=== PATIENT | male | born 2000 | race Caucasian/White ===

== ENCOUNTER 2022-09-14 10:25 | Emergency (ER) | payer BC ==
--- OUTSIDE RECORDS SUMMARY | 2022-09-14 10:28 | XMS REPORT | Continuity of Care Document ---
:[address] [facility] t Address [address] [place] [address]. 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 rmann striction striction Active Problem 09/03/2021 eCW: Janeth Sullivan MD, PA Obesity Obesity Problem Active 2021-09-03 Me moria Active 04:10:30 l Problem Manuel 09/03/2021 eCW: Janeth Sullivan MD, PA Allergic Allergic Problem Active 2021-09-03 Memoria rhinitis rhinitis 04:10:30 l Active Manuel Problem 09/03/2021 eCW: Janeth Sullivan MD, PA Hair loss Hair loss Diagnosis Active 2020-01-09 Memoria Active 04:10:51 l Diagnosis Manuel 01/09/2020 eCW: Janeth Sullivan MD, PA Exposure Exposure Diagnosis Active 2019-05-09 Memoria to to 05:10:45 l hepatitis hepatitis Herm azam B B Active Diagnosis 05/09/2019 eCW: Janeth Sullivan MD, PA Encounter Encounter Diagnosis Active 2021-04-05 Memoria for for 05:37:34 l immunizati immunizati He rmann on on Active Diagnosis 04/05/2021 eCW: Janeth Sullivan MD, PA Screen for Screen Diagnosis Active 2021-09-03 Memoria STD for STD 04:10:30 l (sexually (sexually Herm azam transmitte transmitte d disease) d disease) Active Diagnosis 09/03/2021 eCW: Janeth Sullivan MD, PA Adult Adult Diagnosis Active 2021-09-03 [facility] 04:10:30 l medical medical Manuel exam exam Active Diagnosis 09/03/2021 eCW: Janeth Sullivan MD, PA Sinusitis Diagnosis Active 2021-08-18 Memoria Sinusitis 04:13:12 l Active Manuel Diagnosis 08/18/2021 eCW: Janeth Sullivan MD, PA Immunity Immunity Diagnosis Active 2021-04-05 Memoria status status 05:21:58 l testing testing Manuel Active Diagnosis 04/05/2021 eCW: Janeth Sullivan MD, PA Screening Screening Diagnosis [facility]:21[facility]58 l tuberculos tuberculos He rmann is is Active Diagnosis 04/05/2021 eCW: Janeth Sullivan MD, PA Need for Need for Diagnosis Active 2021-04-05 Memoria hepatitis hepatitis 05:21:58 l C C Manuel screening screening test test Active Diagnosis 04/05/2021 eCW: Janeth Sullivan MD, PA Allergies, Adverse Reactions, Alerts Allergy Allergy Status Severity Reaction(s) Onset Inactive Treating Comm ents Source Name Type Date Date Clinician N.K.D.A. N.K.D.A. Active Info Not Luis massiel Available 5-11 l 00:00: Manuel 00 Social History Social Habit Start Date Stop Date Quantity Comments Source [facility] Tobacco use and 2021-05-04 2021-05-04 Smokeless Religion exposure 00:00:00 00:00:00 tobacco non-user Hospital Alcohol intake 2021-05-04 2021-05-04 Ex-drinker Religion 00:00:00 00:00:00 (finding) Hospital History of Social 2021-05-04 2021-05-[address] function 00:00:00 00:00:00 Hospital Alcohol Comment 2021-05-04 2021-05-04 social Religion 00:00:00 00:00:00 Hospital Sex Assigned At [birth year] Religion 00:00:00 00:00:00 Hospital Smoking Status Start Date Stop Date Source Never smoked tobacco [facility] Medications Ordered Filled Start Stop Current Ordering Indication Dosage Frequency Signature Comments Components Source Medication Medication Date Date Medication? Clinician (SIG) Name Name Amoxicillin Yes KATIE 1 tablet Memoria 4-22 MARISCAL l 00:00: ProAir HFA Yes KATIE 1 puff as Memoria 7-21 MARISCAL needed l 00:00: Manuel 00 ProAir HFA Yes KATIE 1 puff as Memoria 7-21 MARISCAL needed l 00:00: Immunizations Ordered Immunization Filled Immunization Date Status Commen ts Source Name Name VARICELLA 2020-10-03 Completed [facility] 00:00:00 Manuel ppd 2020-10-03 Completed [facility] 00:00:00 Manuel [place] Quadrivalent 2020-09-26 Completed Luis rial 00:00:00 [place] ppd 2020-09-26 Completed [facility] 00:00:00 [place] Vital Signs Vital Name Observation Time Observation Value Comments Source Diastolic (mm Hg) 2021-09-02 13:15:00 Mem orial Manuel Systolic (mm Hg) 2021-09-02 13:15:00 Lius rial Manuel Temperature Oral (F) 2021-09-02 13:15:00 97.9 F [facility] Manuel Weight 2021-09-02 13:15:00 [facility] [place] Height 2021-09-02 13:15:00 [facility] [place] Weight 2021-08-14 21:00:00 [facility] Manuel Height 2021-08-14 21:00:00 [facility] [place] Diastolic (mm Hg) 2020-09-26 14:00:00 Mem orial [place] Systolic (mm Hg) 2020-09-26 14:00:00 Luis rial [place] Temperature Oral (F) 2020-09-26 14:00:00 97.9 F [facility] [place] Weight 2020-09-26 14:00:00 [facility] Manuel Height 2020-09-26 14:00:00 [facility] [place] Weight 2020-01-07 15:30:00 [facility] [place] Height 2020-01-07 15:30:00 [facility] Manuel Weight 2019-11-13 16:30:00 [facility] [place] Height 2019-11-13 16:30:00 [facility] Manuel Diastolic (mm Hg) 2019-05-08 16:15:00 Mem orial [place] Systolic (mm Hg) 2019-05-08 16:15:00 Luis rial Manuel Temperature Oral (F) 2019-05-08 16:15:00 98.3 F [facility] [place] Weight 2019-05-08 16:15:00 [facility] Manuel Height 2019-05-08 16:15:00 [facility] [place] Procedures This patient has no known procedures. Plan of Care Planned Activity Planned Date Details Comments Source Future Scheduled 2022-09-14 COVID-19 VACCINE [facility] Test 10:28:19 (#1) [code = COVID-19 VACCINE (#1)] Future Scheduled 2022-09-14 Hepatitis C [facility] Test 10:28:19 screening (procedure) [code = 752221053] Future Scheduled 2022-09-14 INFLUENZA VACCINE [facility] Test 10:28:19 [code = INFLUENZA VACCINE] Encounters Start End Encounter Admission Attending Care Care Encounter Source Date/Time Date/Time Type Type Clinicians Facility Department ID 2022-09-14 Outpatient [id number] Memoria 10:28:19 [id number] Manuel [id number] 2022-02-03 Inpatient [facility] [id number] [facility] 21:38:00 00 [facility] 2021-09-02 2021-09-02 Outpatient [facility] [id number] eClinic 08:15:00 08:15:00 [facility] 2021-08-31 2021-08-31 Outpatient [facility] [id number] eClinic 14:25:00 14:25:00 [facility] 2021-08-14 2021-08-14 [facility] [place] [id number] eClinic 16:00:00 16:00:00 [facility] 2021-05-04 2021-05-04 Emergency [place], [place] [id number] [place] 00:00:00 00:00:00 [facility] 2020-10-06 2020-10-06 [facility] [place] [id number] eClinic 11:43:00 11:43:00 [facility] 2020-10-06 2020-10-06 Outpatient Pedro Pedro [place] [id number] eClinic 11:30:00 11:30:00 [facility] 2020-10-03 2020-10-03 Outpatient Pedro Pedro [place] [id number] eClinic 14:30:00 14:30:00 [facility] 2020-09-26 2020-09-26 Outpatient Pedro Pedro [place] [id number] eClinic 08:00:00 08:00:00 [facility] 2020-09-24 2020-09-24 Outpatient Pedro Pedro [place] [id number] eClinic 14:22:00 14:22:00 [facility] 2020-02-05 2020-02-05 Outpatient Pedro Pedro [place] [id number] eClinic 09:44:00 09:44:00 [facility] 2020-01-29 2020-01-29 Outpatient Pedro Pedro [place] [id number] eClinic 11:06:00 11:06:00 [facility] 2020-01-08 2020-01-08 Outpatient [facility] [place] [id number] eClinic 10:30:00 10:30:00 [facility] 2020-01-07 2020-01-07 Outpatient [facility] [place] [id number] eClinic 10:47:00 10:47:00 [facility] 2020-01-07 2020-01-07 Outpatient [facility] [id number] eClinic 10:30:00 10:30:00 [facility] 2019-11-13 2019-11-13 Outpatient [facility] [id number] eClinic 11:30:00 11:30:00 [facility] 2019-05-08 2019-05-08 Outpatient [facility] [id number] eClinic 10:15:00 10:15:00 [facility] Results This patient has no known results.
[2022-09-14] MEDS ORDERED: TDAP (DIPHTH,PERTUSS(ACELL),TET VAC) 0.5 ML VIAL IMVAC ONE (11:29)
[2022-09-14] MEDS ORDERED: DERMABOND SKIN ADHESIVE TOP ONE (11:31)
--- NOTE | 2022-09-14 11:54 | ER ---
Nurse's Notes [facility] Name: Vee Vidal II Age: 22 yrs Sex: Male : 2000 Arrival Date: 09/14/2022 Time: 10:25 Bed 12 Private MD: Diagnosis: Laceration without foreign body of left middle finger without damage to nail Presentation: 09/14 10:41 Chief complaint: Patient states: was working on his truck, cut his left middle finger. iw Coronavirus screen: At this time, the client does not indicate any symptoms associated with coronavirus-19. Ebola Screen: Patient negative for fever greater than or equal to 101.5 degrees Fahrenheit, and additional compatible Ebola Virus Disease symptoms Patient denies exposure to infectious person. Patient denies travel to an Ebola-affected area in the 21 days before illness onset. No symptoms or risks identified at this time. Initial Sepsis Screen: Does the patient meet any 2 criteria? No. Patient's initial sepsis screen is negative. Does the patient have a suspected source of infection? No. Patient's initial sepsis screen is negative. Risk Assessment: Do you want to hurt yourself or someone else? Patient reports no desire to harm self or others. Onset of symptoms was September 14, 2022. 10:41 Method Of Arrival: Ambulatory iw 10:41 Acuity: JOCELYN 4 iw Triage Assessment: 11:00 General: Appears in no apparent distress. uncomfortable, Behavior is calm, cooperative, eh3 appropriate for age. Pain: Complains of pain in left middle finger. Neuro: Level of Consciousness is awake, alert, obeys commands, Oriented to person, place, time, situation. Cardiovascular: Capillary refill < 3 seconds Patient's skin is warm and dry. Respiratory: Airway is patent Respiratory effort is even, unlabored, Respiratory pattern is regular, symmetrical. GI: Abdomen is round non-distended. : No signs and/or symptoms were reported regarding the genitourinary system. Derm: Skin is pink, warm \T\ dry. Musculoskeletal: Circulation, motion, and sensation intact. Injury Description: Laceration sustained to dorsal aspect of middle phalanx of left middle finger is clean, 0.5 to 2.5 cm long, not bleeding. Historical: - Allergies: 10:43 No Known Allergies; iw - Home Meds: 10:43 None [Active]; iw - PMHx: 10:43 None; iw - Immunization history:: Last tetanus immunization: unknown. - Social history:: Smoking status: . Screenin:00 [facility] ED Fall Risk Assessment (Adult) Score/Fall Risk Level 0 - 2 = Low Risk. Abuse eh3 screen: Denies threats or abuse. Denies injuries from another. Nutritional screening: No deficits noted. Tuberculosis screening: No symptoms or risk factors identified. Assessment: 11:00 Reassessment: No changes from previously documented assessment. See triage assessment. eh3 Vital Signs: 10:43 BP 127 / 80; Pulse 80; Resp 16; Temp 98.4; Pulse Ox 99% on R/A; Weight 113.4 kg; Height iw 6 ft. 0 in. ; Pain 2/10; 10:43 Body Mass Index 33.91 (113.40 kg, 182.88 cm) iw 10:43 Pain Scale: Adult ED Course: 10:28 Patient arrived in ED. rg4 10:29 Solange Huntley FNP is [facility]. jh7 10:29 Verónica Mcdermott MD is Attending Physician. 7 10:41 Triage completed. iw 10:43 Arm band placed on. iw 11:00 Patient has correct armband on for positive identification. Bed in low position. Call eh3 light in reach. 11:00 Wound care: to laceration located on dorsal aspect of middle phalanx of left middle eh3 finger was irrigated with normal saline, Patient tolerated well. 11:04 XRAY Hand LEFT 3 View In Process Unspecified. EDMS 11:18 Jodie Lima, RN is Primary Nurse. eh3 12:02 No provider procedures requiring assistance completed. Patient did not have IV access eh3 during this emergency room visit. Administered Medications: 11:25 Drug: Tetanus-Diphtheria Toxoid IM Adult 0.5 ml {Industrial Custodian: [employer] ([employer]). 3 Exp: 02/09/2023. Lot #: [id number]. } Route: IM; Site: right deltoid; 11:25 Follow up: Response: (VIS) Vaccine information sheet provided today. Questions and/or eh3 concerns addressed. VIS edition date: Nov 28, 2020. 12:02 Follow up: Response: No adverse reaction eh3 Medication: 11:25 Vaccine Information Statement (VIS) provided today. Questions and/or concerns 3 addressed. VIS edition date: November 28, 2020. Outcome: 11:54 Discharge ordered by . [email or web address] 12:02 Discharged to home ambulatory. 3 12:02 Condition: stable 12:02 Discharge instructions given to patient, Instructed on discharge instructions, follow up and referral plans. wound care, Demonstrated understanding of instructions, follow-up care, wound care. 12:03 Patient left the ED. 3 Signatures: Dispatcher [employer] EDCarol Moura, DARLYN SANTIZO iw Swetha Javier 4 Jodie Lima RN RN 3 Solange Huntley, WATER FILTERER HELPER WATER FILTERER HELPER 7 Corrections: (The following items were deleted from the chart) 10:44 10:43 Pulse 80bpm; Resp 16bpm; Pulse Ox 99% RA; Temp 98.4F; iw kaley
--- NOTE | 2022-09-14 11:54 | EDPHYS ---
Physician Documentation [facility] Name: Vee Vidal II Age: 22 yrs Sex: Male : 2000 Arrival Date: 09/14/2022 Time: 10:25 Bed 12 Private MD: ED Physician Verónica Mcdermott HPI: 09/14 10:40 This 22 yrs old Male presents to ER via Ambulatory with complaints of Finger Laceration.jh7 10:40 Onset: The symptoms/episode began/occurred acutely. 22-year-old male reports that he jh7 cut his left third digit on his cars engine 30 minutes prior to arrival. Complains of laceration over the PIP. Full range of motion no bleeding noted at this time.. Historical: - Allergies: 10:43 No Known Allergies; iw - Home Meds: 10:43 None [Active]; iw - PMHx: 10:43 None; iw - Immunization history:: Last tetanus immunization: unknown. - Social history:: Smoking status: . ROS: 10:40 Constitutional: Negative for fever, chills, and weight loss, Eyes: Negative for injury, jh7 pain, redness, and discharge, Neck: Negative for injury, pain, and swelling, Cardiovascular: Negative for chest pain, palpitations, and edema, Respiratory: Negative for shortness of breath, cough, wheezing, and pleuritic chest pain, Neuro: Negative for headache, weakness, numbness, tingling, and seizure. 10:40 MS/extremity: Positive for laceration, of the left hand. 10:40 Skin: Positive for laceration(s), of the Left 3rd digit over PIP. 10:40 All other systems are negative. Exam: 10:40 Constitutional: This is a well developed, well nourished patient who is awake, alert, jh7 and in no acute distress. Head/Face: Normocephalic, atraumatic. Eyes: Pupils equal round and reactive to light, extra-ocular motions intact. Lids and lashes normal. Conjunctiva and sclera are non-icteric and not injected. Cornea within normal limits. Periorbital areas with no swelling, redness, or edema. Neck: Trachea midline, no thyromegaly or masses palpated, and no cervical lymphadenopathy. Supple, full range of motion without nuchal rigidity, or vertebral point tenderness. No Meningismus. Cardiovascular: Regular rate and rhythm with a normal S1 and S2. No gallops, murmurs, or rubs. Normal PMI, no JVD. No pulse deficits. Respiratory: Lungs have equal breath sounds bilaterally, clear to auscultation and percussion. No rales, rhonchi or wheezes noted. No increased work of breathing, no retractions or nasal flaring. MS/ Extremity: Pulses equal, no cyanosis. Neurovascular intact. Full, normal range of motion. Neuro: Awake and alert, GCS 15, oriented to person, place, time, and situation. Motor strength 5/5 in all extremities. Sensory grossly intact. Normal gait. 10:40 Skin: injury, laceration(s), the wound is approximately 1.5 cm(s), with a depth of 0.1 cm(s), of the left dorsal 3rd digit over PIP. Vital Signs: 10:43 BP 127 / 80; Pulse 80; Resp 16; Temp 98.4; Pulse Ox 99% on R/A; Weight 113.4 kg; Height iw 6 ft. 0 in. ; Pain 2/10; 10:43 Body Mass Index 33.91 (113.40 kg, 182.88 cm) iw 10:43 Pain Scale: Adult iw Laceration: 11:00 Wound Repair of 1.5cm ( 0.6in ) dermis laceration to dorsal aspect of middle phalanx of jh7 left middle finger. Distal neuro/vascular/tendon intact. Wound prep: Moderate cleansing by nurse. Skin closed with dermabond Adhesive skin closure using Dermabond. Dressed with non-adherent dressing. Patient tolerated well. MDM: 10:29 Patient medically screened. [facility] 10:40 ED course: The patient refused sutures and said that he only wants glue. Explained the [facility] risk of only gluing the laceration due to the site being over a joint and the likelihood of it popping open. He states that he wants it glued and put in a splint.. 11:00 Differential diagnosis: Finger laceration. Data reviewed: vital signs, nurses notes, [facility] radiologic studies, plain films. Counseling: I had a detailed discussion with the patient and/or guardian regarding: the historical points, exam findings, and any diagnostic results supporting the discharge/admit diagnosis, to return to the emergency department if symptoms worsen or persist or if there are any questions or concerns that arise at home. Special discussion: Patient advised to avoid getting wound wet or removing splint for the next 72 hours. The splint was only applied to prevent range of motion at the PIP which would cause the wound to dehisce. Patient was advised to remove splint after 72 hours to avoid immobilization.. 09/14 10:43 Order name: XRAY Hand LEFT [address] [facility] 09/14 10:44 Order name: Dressing - Wound; Complete Time: 11:[address] [facility] 09/14 10:44 Order name: Gloves, Sterile; Complete Time: : [facility] 09/14 10:44 Order name: Misc. Order: dermabond, steri-strips, finger splint; Complete Time: : [facility] 09/14 10:44 Order name: Finger Splint; Complete Time: 12:[address] [facility] Administered Medications: 11:25 Drug: Tetanus-Diphtheria Toxoid IM Adult 0.5 ml {Technical Account Executive: [employer] ([employer] [facility] Exp: 02/09/2023. Lot #: [id number]. } Route: IM; Site: right deltoid; 11:25 Follow up: Response: (VIS) Vaccine information sheet provided today. Questions and/or [facility] concerns addressed. VIS edition date: Nov 28, 2020. 12:02 Follow up: Response: No adverse reaction [facility] Disposition Summary: 09/14/22 11:54 Discharge Ordered Location: Home [facility] Problem: new [facility] Symptoms: have improved [facility] Condition: Stable [facility] Diagnosis - Laceration without foreign body of left middle finger without damage to nail [facility] Followup: [facility] - With: Private Physician - When: 2 - 3 days - Reason: Recheck today's complaints Discharge Instructions: - Discharge Summary Sheet [facility] - Nonsutured Laceration Care [facility] Forms: - Medication Reconciliation Form 7 - Thank You Letter [facility] Signatures: Dispatcher [employer] Carol Sibley RN RN Jodie Lima RN RN 3 Solange Huntley, MOSAIC TECHNICIAN MOSAIC TECHNICIAN [facility]
--- NOTE | 2022-09-14 12:03 | RAD REPORT ---
EXAM DESCRIPTION: RAD - Hand Left 3 View - 09/14/2022 11:02 am CLINICAL HISTORY: SMASH INJURY Trauma, pain COMPARISON: No comparisons FINDINGS: Soft tissue swelling affects the third finger. No fracture or radiopaque foreign body.
[2022-09-14 12:26] VITALS: BP 127/80; TEMP 98.4; O2SAT 99
== END 2022-09-14 12:03 | disposition home or self-care (01) ==
LOC: ER 10:25
PROC: 0HQGXZZ Repair Left Hand Skin, External Approach (ICD-10-PCS; principal; 2022-09-14)
DX: S61.213A Laceration without foreign body of left middle finger without damage to nail, initial encounter (principal); Z23 Encounter for immunization